=== PATIENT | male | born 1940 | race Two or more races ===

== ENCOUNTER 2019-10-08 17:07 | Inpatient (IN) | payer MEDICARE, MEDICAID ==
[~2019-10-08] VITALS: Ht 167.6 cm; Wt 75.3 kg
[2019-10-08] MEDS ORDERED: Omnipaque-300 100ml vial INJ PRN (17:15)
--- NOTE | 2019-10-08 17:25 | NUR ---
ED Nurse Note: pt brought in by ambulance from home due to ETOH. pt aao x0-1 and bedridden and alcohol smell noted. pt is confused but no combative behavior noted. drowsy and sleeping. no skin trauma noted. mild tremor and anxiety noted with mumbling but no SI or hallucination. pt is in gown and on [employer]. no acute distress noted at this time.
[2019-10-08 17:28] VITALS: BP 123/72
--- NOTE | 2019-10-08 17:36 | NUR ---
ED Nurse Note:blood sent to labs and IV meds and fluids given
[2019-10-08] MEDS ORDERED: Pantoprazole Inj IVP ONE (17:45)
[2019-10-08] MEDS ORDERED: DiphenhydrAMINE 50mg/ml Inj IVP ONE (17:45)
[2019-10-08 18:15] LABS: BASOPHILS % (AUTO) 1.6 % (0.0-2.0); EOSINOPHILS % (AUTO) 7.2 % (0.0-3.0); HEMATOCRIT 37.3 % (42.0-52.0); HEMOGLOBIN 12.3 G/DL (14.2-18.0); LYMPHOCYTES % (AUTO) 53.7 % (20.0-45.0); MEAN CORPUSCULAR VOLUME 93 FL (80-99); MONOCYTES % (AUTO) 6.3 % (1.0-10.0); NEUTROPHILS % (AUTO) 31.2 % (45.0-75.0); PLATELET COUNT 260 K/UL (150-450); RED CELL DISTRIBUTION WIDTH 14.7 % (11.6-14.8); WHITE BLOOD COUNT 7.1 K/UL (4.8-10.8)
--- NOTE | 2019-10-08 18:15 | Emergency Room Report ---
History of Present Illness General Chief Complaint: Alcohol Intoxication Source: Patient, EMS Present Illness HPI Patient presents from home There is minimal information the paramedics report that the family contacted the Paramedics as the patient appeared to be confused possible alcohol intoxication also had a vomiting episode with what they saw Having a red blood Here the patient is slurring his speech Not able to provide full history however he does repeat that he wants to go home and does not know why he is here He does admit to drinking alcohol earlier Denies any chest pain denies any diarrhea denies any abdominal pain Allergies: Coded Allergies: No Known Allergies (Unverified , 10/09/19) COVID-19 Screening Contact w/high risk pt: No Recent Travel to affected area: No Experienced COVID-19 symptoms?: No Patient History Limited by: medical condition Past Medical History: see triage record Reviewed Nursing Documentation: PMH: Agreed; PSxH: Agreed Nursing Documentation-PMH Past Medical History Deferred: Pt Cognitively Impaired Review of Systems All Other Systems: limited - Other than the ones mentioned in the history of present illness all others are reviewed however they do stay limited due to the patient's mental status Physical Exam Vital Signs Date Time Temp Pulse Resp B/P (MAP) Pulse Ox O2 Delivery O2 Flow Rate FiO2 10/08/19 17:03 98.4 55 18 123/72 (89) 98 Room Air Sp02 EP Interpretation: reviewed, normal General Appearance: other - Appears somewhat agitated Head: normocephalic, atraumatic Eyes: bilateral eye PERRL, bilateral eye EOMI ENT: hearing grossly normal, EOM grossly intact Neck: supple Respiratory: lungs clear, no respiratory distress, no retraction Cardiovascular #1: regular rate, rhythm Gastrointestinal: other - Patient is mildly distended however nontender on palpation Musculoskeletal: normal inspection Neurologic: alert - And responsive to verbal and physical stimuli but is agitated at times combative and then becomes more cooperative Skin: no rash Lymphatic: no adenopathy Procedures Critical Care Time Critical Care Time 50 minutes for multiple re-evaluations presentations with altered mental status concerning for acute decompensation and possible not including any procedural time Medical Decision Making Diagnostic Impression: Primary Impression: Encephalopathy Additional Impressions: GI bleed Acute alcoholic intoxication ER Course Multiple differentials including but not limited to neurological cardiac, cardiopulmonary gastrointestinal process entertained patient's hemoglobin count is normal Alcohol level was significantly elevated CT head does not show any acute process Patient requires further inpatient care and evaluation Labs Test 10/08/19 17:30 10/08/19 18:20 White Blood Count 7.1 K/UL (4.8-10.8) Red Blood Count 4.00 M/UL (4.70-6.10) Hemoglobin 12.3 G/DL (14.2-18.0) Hematocrit 37.3 % (42.0-52.0) Mean Corpuscular Volume 93 FL (80-99) Mean Corpuscular Hemoglobin 30.8 PG (27.0-31.0) Mean Corpuscular Hemoglobin Concent 33.0 G/DL (32.0-36.0) Red Cell Distribution Width 14.7 % (11.6-14.8) Platelet Count 260 K/UL (150-450) Mean Platelet Volume 7.0 FL (6.5-10.1) Neutrophils (%) (Auto) 31.2 % (45.0-75.0) Lymphocytes (%) (Auto) 53.7 % (20.0-45.0) Monocytes (%) (Auto) 6.3 % (1.0-10.0) Eosinophils (%) (Auto) 7.2 % (0.0-3.0) Basophils (%) (Auto) 1.6 % (0.0-2.0) Prothrombin Time 10.0 SEC (9.30-11.50) Prothromb Time International Ratio 0.9 (0.9-1.1) Activated Partial Thromboplast Time 26 SEC (23-33) Sodium Level 149 MMOL/L (136-145) Potassium Level 4.2 MMOL/L (3.5-5.1) Chloride Level 108 MMOL/L (98-107) Carbon Dioxide Level 24 MMOL/L (21-32) Anion Gap 19 mmol/L (5-15) Blood Urea Nitrogen 10 mg/dL (7-18) Creatinine 0.9 MG/DL (0.55-1.30) Estimat Glomerular Filtration Rate > 60 mL/min (>60) Glucose Level 143 MG/DL (74-106) Calcium Level 8.7 MG/DL (8.5-10.1) Total Bilirubin 0.2 MG/DL (0.2-1.0) Aspartate Amino Transf (AST/SGOT) 26 U/L (15-37) Alanine Aminotransferase (ALT/SGPT) 29 U/L (12-78) Alkaline Phosphatase 100 U/L (46-116) Troponin I 0.002 ng/mL (0.000-0.056) Total Protein 7.4 G/DL (6.4-8.2) Albumin 3.9 G/DL (3.4-5.0) Globulin 3.5 g/dL Albumin/Globulin Ratio 1.1 (1.0-2.7) Lipase 88 U/L (73-393) Serum Alcohol 356 mg/dL Urine Color Pale yellow Urine Appearance Clear Urine pH 7 (4.5-8.0) Urine Specific [place] 1.005 (1.005-1.035) Urine Protein Negative (NEGATIVE) Urine Glucose (UA) Negative (NEGATIVE) Urine Ketones Negative (NEGATIVE) Urine Blood Negative (NEGATIVE) Urine Nitrite Negative (NEGATIVE) Urine Bilirubin Negative (NEGATIVE) Urine Urobilinogen Normal MG/DL (0.0-1.0) Urine Leukocyte Esterase Negative (NEGATIVE) Urine Opiates Screen Negative (NEGATIVE) Urine Barbiturates Screen Negative (NEGATIVE) Phencyclidine (PCP) Screen Negative (NEGATIVE) Urine Amphetamines Screen Negative (NEGATIVE) Urine Benzodiazepines Screen Negative (NEGATIVE) Urine Cocaine Screen Negative (NEGATIVE) Urine Marijuana (THC) Screen Negative (NEGATIVE) Rhythm Strip Diag. Results EP Interpretation: yes Rate: 88 Rhythm: NSR, no PVC's, no ectopy CT/MRI/US Diagnostic Results CT/MRI/US Diagnostic Results : Impression CT headImpression: Age-related volume loss Negative for acute intracranial bleed or mass effect Evidence of prior right craniotomy CT abdomen pelvisImpression: Somewhat limited exam due to motion artifact Markedly distended urinary bladder Mild distal esophageal wall thickening, could indicate esophagitis No definite acute abnormality otherwise. Age-indeterminate L2 vertebral body compression fracture. 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
--- NOTE | 2019-10-08 18:17 | Diagnostic Imaging Report ---
Indications: Acute intoxication, history of head trauma, confused, slurred speech Technique: Spiral acquisitions obtained through the brain. Angled axial and coronal 5 x 5 mm slices were reconstructed. Total dose length product 1098 mGycm. CTDI vol(s) 50 mGy. Dose reduction achieved using automated exposure control Comparison: None. Findings: There is evidence of prior right temporal craniotomy. There is age-related enlargement of the ventricles and extra axial CSF spaces. No acute intracranial hemorrhage or edema. No mass effect nor midline shift. There is evidence of prior bilateral cataract surgery. The mastoids are clear. The sinuses are clear. Impression: Age-related volume loss Negative for acute intracranial bleed or mass effect Evidence of prior right craniotomy This agrees with the preliminary interpretation provided overnight by [facility] teleradiology service. The CT scanner at [facility] is accredited by the [employer] and the scans are performed using protocols designed to limit radiation exposure to as low as reasonably achievable to attain images of sufficient resolution adequate for diagnostic evaluation.
[2019-10-08 18:20] LABS: INR 0.9 (0.9-1.1)
--- NOTE | 2019-10-08 18:25 | NUR ---
ED Nurse Note:pt. had CT abdomen done
--- NOTE | 2019-10-08 18:33 | Diagnostic Imaging Report ---
Indication: Abdominal pain, vomiting blood Technique: Spiral acquisitions obtained through the abdomen and pelvis. No oral contrast utilized, per emergency room physician request No IV contrast utilized, per referring physician request.. Multiplanar reconstructions were generated. Total dose length product 416 mGycm. CTDIvol(s) 7.9 mGy. Dose reduction achieved using automated exposure control Comparison: None Findings: Motion artifact obscures the lower pelvis and there is some image degradation of the mid abdomen due to motion artifact. The appendix is normal. No evidence of colonic diverticulosis or diverticulitis. Proximal small bowel loops are gas-filled, slightly prominent, but not frankly distended and there is no transition point. No free or loculated intraperitoneal gas or fluid. There is mild wall thickening of the distal esophagus. The stomach is unremarkable. Lack of IV contrast limits assessment of the solid organs. The gallbladder has been removed. The liver demonstrate a small exophytic cyst coming off of segment 2 of the left hepatic lobe. The bile ducts, pancreas, spleen, adrenals are unremarkable. There is a 1 cm diameter eggshell calcification medial to the right kidney which probably represents a small calcified renal artery branch aneurysm. The kidneys are grossly unremarkable except for some perinephric fat stranding. No retroperitoneal or mesenteric mass or adenopathy. No pelvic mass or adenopathy. The bladder is markedly distended. There are mild posterior dependent pulmonary atelectatic changes. The bones demonstrate degenerative a compression fracture deformity of the L2 vertebral body. Also noted are degenerative spondylosis changes. Impression: Somewhat limited exam due to motion artifact Markedly distended urinary bladder Mild distal esophageal wall thickening, could indicate esophagitis No definite acute abnormality otherwise. Age-indeterminate L2 vertebral body compression fracture. 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 The CT scanner at [facility] is accredited by the [employer] and the scans are performed using protocols designed to limit radiation exposure to as low as reasonably achievable to attain images of sufficient resolution adequate for diagnostic evaluation.
[2019-10-08 18:44] LABS: ALANINE AMINOTRANSFERASE 29 U/L (12-78); ALBUMIN 3.9 G/DL (3.4-5.0); ALBUMIN/GLOBULIN RATIO 1.1 (1.0-2.7); ALKALINE PHOSPHATASE 100 U/L (46-116); ANION GAP 19 mmol/L (5-15); ASPARTATE AMINO TRANSFERASE 26 U/L (15-37); BILIRUBIN,TOTAL 0.2 MG/DL (0.2-1.0); BLOOD UREA NITROGEN 10 mg/dL (7-18); CALCIUM 8.7 MG/DL (8.5-10.1); CARBON DIOXIDE 24 MMOL/L (21-32); CHLORIDE 108 MMOL/L (98-107); CREATININE 0.9 MG/DL (0.55-1.30); POTASSIUM 4.2 MMOL/L (3.5-5.1); SODIUM 149 MMOL/L (136-145)
[2019-10-08 18:47] VITALS: BP 100/43
[2019-10-08 19:05] VITALS: BP 115/47
--- NOTE | 2019-10-08 19:05 | NUR ---
ED Nurse Note: Report received from KULWANT Navarro. Pt is sleeping at this time, no acute distress noted. IV is patent and intact, IV fluids infusing. Pt vital signs are stable. Will continue to monitor.
[2019-10-08 19:15] LABS: APPEARANCE,URINE CLEAR; BILIRUBIN, URINE NEGATIVE (NEGATIVE); COLOR,URINE PALE YELLOW; GLUCOSE, URINE (UA) NEGATIVE (NEGATIVE); KETONES,URINE NEGATIVE (NEGATIVE); LEUKOCYTE ESTERASE ,URINE NEGATIVE (NEGATIVE); NITRITE,URINE NEGATIVE (NEGATIVE); PH,URINE 7 (4.5-8.0); PROTEIN,URINE NEGATIVE (NEGATIVE); UROBILINOGEN,URINE NORMAL MG/DL (0.0-1.0)
--- NOTE | 2019-10-08 20:00 | NUR ---
ED Nurse Note: Report given to KULWANT Quintanilla.
--- NOTE | 2019-10-08 20:15 | NUR ---
ED Nurse Note: Pt stable for transfer to [facility] unit at this time per ERMD. Pt is in no acute distress, vital signs are stable. Pt is sleeping at this time, but is arousable to light touch. Pt IV patent and intact. Pt taken to unit via gurney by RN. Pt belongings sent with pt.
[2019-10-08 20:20] VITALS: BP 127/58
--- NOTE | 2019-10-08 20:20 | NUR ---
NURSE NOTES: Arrived patient the unit. Received report from ER nurse Verna RN. Patient open his eyes, non-verbal response, but patient has body response when stimulated. Belonging checked and patient is unable to sign. IV site is intact and patient. Bed is on alam, locked, lowest position. Call light within reach. Will continue to monitor.
--- NOTE | 2019-10-08 20:46 | NUR ---
NURSE NOTES: Called to Dr. Davidson regarding admission order and left message.
--- NOTE | 2019-10-08 21:57 | NUR ---
NURSE NOTES: Called 2nd to Dr. Davidson regarding admission order and left message.
--- NOTE | 2019-10-08 22:52 | NUR ---
NURSE NOTES: patient is awake now, and only Guinean specking. Dr. Davidson want family's number and got family's number from patient; son, Puneet Gordillo [phone]. Patient ambulate with assist to go bathroom. Called to Dr. Davidson regarding family number and left message. Addendum: 10/08/19 at 0958 by Dwight Cohen RN add: patient a/ox3
[2019-10-08] MEDS ORDERED: Thiamine HCl 100 MG in NS 55 ML IM SCH (23:00)
[2019-10-08] MEDS: Thiamine HCl 100 MG in NS 55 ML IVPB SCH (23:28)
[2019-10-09] VITALS: BP 125/70
[2019-10-09] MEDS ORDERED: Folic Acid 1 MG, Magnesium Sulfate 2,000 MG, Multivitamin - 12 Injection 10 ML in Sodiu... IV SCH ×4
[2019-10-09 04:00] VITALS: BP 130/62
--- NOTE | 2019-10-09 07:30 | NUR ---
HAND-OFF: Report given to Cornel BLUM. Patient in stable condition.
--- NOTE | 2019-10-09 07:45 | NUR ---
NURSE NOTES: Received report from Dwight BLUM, pt a/a/o with no signs of distress or other issues at this time. pt is able to ambulate around the room with unsteady gait, pt needs medical operations supervisor assistance. pt's IV left CHEN gauge #22 running D5 1/2 NS@125ml/hr. call light within reach. bed in lowest position. side rales up x2. I will f/u as needed.
[2019-10-09 08:00] VITALS: BP 124/70
[2019-10-09] MEDS ORDERED: Thiamine 100mg tab ORAL SCH (09:00)
[2019-10-09] MEDS: Pantoprazole Inj IVP SCH (09:12)
[2019-10-09] MEDS: Folic Acid 1 MG, Magnesium Sulfate 2,000 MG, Multivitamin - 12 Injection 10 ML in Sodiu... IV SCH (09:12)
[2019-10-09] MEDS ORDERED: Potassium Chloride 10 MEQ in D5 1/2NS 1,000 ML IV SCH (10:00)
[2019-10-09] MEDS ORDERED: D5 1/2NS w/KCL 10meq 1,000 ML IV SCH (10:44)
[2019-10-09] MEDS: NovoLOG Insulin Flexpen SUBQ SCH ×3 (11:30→20:17)
--- NOTE | 2019-10-09 11:30 | NUR ---
CASE MANAGEMENT: INITIAL REVIEW 79YR OLD MALE BIBJed FROM HOME CC: ETOH INTOXICATION; COMBATIVE; BEDRIDDEN; VOMIT BLOOD X1 EPISODE SI:ACTE ALCOHOLIC INTOXICATION . ENCEPHALOPATHY 98.4 55 18 123/72 98% ON RA NA+ 149 CL- 108 BGLU 143 H/H 12.3/37.3 S. 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
[2019-10-09] MEDS ORDERED: NovoLOG Insulin Flexpen SUBQ SCH (11:50)
[2019-10-09 12:00] VITALS: BP 103/87
--- NOTE | 2019-10-09 15:48 | NUR ---
SUPERVISOR CUSTOMER COMPLAINT SERVICE NOTE SW received a consult for home safety evaluation. Pt is monolingual Welsh.SW met w/ pt and completed the home safety evaluation and address his substance abuse through customer service advisor Francisco #[phone]. Pt presents as A&O3x. Pt denies using DME for ambulation. Pt has 3 adult children, one residing in [facility], one living in [place], [place] and one living w/ him. Pt resides w/ his brother and son at [address] [address], [place] [id number]. PT reports he walks to grocery store, cooks and take bath w/o any assistance/supervision. Grab bars are available in his bathroom. Pt reports he is independent w/ ADLs. He also reports he does not have any problem w/ going up and down stairs. Pt denies fall within past 6 months. Pt states he has good relationship w/ his brother and son and will return home upon DC. Pt admits he drank hard liquor prior to admission. He reports he occasionally drinks a small amount of hard liquor, thus he does not consider as a problem. Pt declined to receive resource on substance abuse rehab programs. Pt provided verbal consent to contact his son, Puneet Lucero [phone]. SW spoke w/ Puneet Rollins through customer service advisor Greta #[phone]. Puneet confirmed the address is [address] [address], [place] [address]. However, Puneet was unable to participate/verify pt's home safety. Puneet sounded intoxicated and screamed several times "He is a citizen. He needs everything that he needs Bring him by [employer]." SW attempted to get pt's granddaughter, Rhiannon Styles's phone number but Puneet declined to provide the number. PT consult to determine the recommendation of DME use.
[2019-10-09 16:00] VITALS: BP 160/77
[2019-10-09] MEDS: D5 1/2NS w/KCL 10meq 1,000 ML IV SCH (17:30)
--- NOTE | 2019-10-09 19:19 | NUR ---
NURSE NOTES: Addendum: 10/09/19 at 1920 by Cornel Salguero RN HAND-OFF: Report given to Codey BLUM pt in stable condition, laying in bed with no signs of distress or other issues at this time.
--- NOTE | 2019-10-09 19:30 | NUR ---
NURSE NOTES: Pt. received from KULWANT Unger. Pt. AAOx4, on room air, no complaints of pain, no indications of shortness of breath at this time. IV access L hand 22g intact, running D5 1/2NS 20meq at 100cc/hr. Bed is low and locked, side rails x2 up, bed alarm active, and call light is in reach. Will continue plan of care.
[2019-10-09 20:00] VITALS: BP 148/73
--- NOTE | 2019-10-09 21:45 | NUR ---
NURSE NOTES: Pt. able to tolerate sandwich and 240 cc water, alternated sips between bites; with 1:1 feed. Addendum: 10/10/19 at 0348 by Codey Decker RN Wrong pt., entered in error.
[2019-10-09] MEDS: Thiamine HCl 100 MG in NS 55 ML IVPB SCH (22:37)
[2019-10-10] VITALS: BP 125/83
--- NOTE | 2019-10-10 01:00 | History and Physical Report ---
DATE OF ADMISSION: 10/08/2019 REASON FOR ADMISSION: Encephalopathy. HISTORY OF PRESENT ILLNESS: This is a male, age 79, who lives with family members. He was brought into the emergency room by paramedics because the patient was noted to be confused and slurring his speech. There was a question about whether he had been drinking alcohol and vomiting. The patient himself has no knowledge as to why he is in the hospital although does admit to drinking alcohol earlier. He denies having a problem with alcohol abuse and states that he drank a lot because he was feeling somewhat sad earlier, but has no further description. There is no reported witnessed seizure activity although son is not present to give any details at this time. The patient was seen in the emergency room, a diagnostic workup undertaken, and elevated alcohol level obtained. The patient possibly vomited some bloody emesis earlier, but that cannot be confirmed. PAST MEDICAL HISTORY: Hypertension, hyperlipidemia, type 2 diabetes mellitus, and history of craniotomy due to "head bleed" following fall in bathtub. ALLERGIES: None known. MEDICATIONS: Prior to admission, names not available, but the patient states he takes 3 pills, 1 for each of the diagnoses noted above. FAMILY HISTORY: Not known. SOCIAL HISTORY: Denies smoking. He denies alcohol abuse although came in intoxicated and there is no history of substance abuse. He lives with family members. REVIEW OF SYSTEMS: Limited due to the patient's poor historical data. All systems negative other than noted above. PHYSICAL EXAMINATION: VITAL SIGNS: Blood pressure 123/72, pulse 55, respirations 18, afebrile. GENERAL: Slightly disheveled, cooperative overall. HEENT: Conjunctivae pink. Oropharynx clear. Mucous membranes dry. NECK: Supple. Jugular venous pressure normal. LUNGS: Clear. CARDIAC: Regular rhythm and rate. Normal S1, S2 with no murmur, rub, or gallop. ABDOMEN: Soft, nontender. No ascites or hepatomegaly. EXTREMITIES: Good pulses. No clubbing or cyanosis. No edema. NEUROLOGIC: Cooperative to my exam. Alert and oriented x2. No motor deficits. IMAGING: EKG with sinus tachycardia and nonspecific ST change. Sodium 149, potassium 4.2, chloride 108, bicarb 24, BUN 10, creatinine 0.9. Glucose 143. Troponin negative. Lipase 88. Albumin 3.9. White count 7.1. Hemoglobin 12.3. Urinalysis, no active sediment. Drug tox screen positive only for alcohol. CT scan of the brain reveals prior right craniotomy. No acute process. LABORATORY DATA: CT scan of the abdomen reveals esophageal wall thickening distally, L2 compression fracture, prior cholecystectomy, right renal artery aneurysm, and atelectasis. IMPRESSION: 1. Toxic encephalopathy. 2. Alcohol intoxication. 3. History of craniotomy, rule out seizures. 4. Dehydration. 5. Hypernatremia. 6. Hyperchloremia. 7. Type 2 diabetes mellitus with hyperglycemia. 8. Age indeterminate compression fracture of L2. 9. Prior cholecystectomy. 10. History of renal artery aneurysm. PLAN: 1. Withdrawal precautions. 2. Hydration by IV route. 3. Vitamin supplementation. 4. Metabolic profile. 5. EEG to be considered. 6. Empiric proton pump inhibitor. Doc Davidson M.D. DR: VINCE JOB#: [id number] CC:
--- NOTE | 2019-10-10 01:15 | Progress Note ---
DATE: 10/09/2019 CARDIOLOGY AND INTERNAL MEDICINE PROGRESS NOTE SUBJECTIVE: No seizures. Alert and cooperative. Continues on IV fluids. PHYSICAL EXAMINATION: VITAL SIGNS: Blood pressure is labile ranging from 106/87 to 160/77, heart rate 77 to 90, respiratory rate 19, and afebrile. HEENT: Oropharynx clear. Mucous membranes dry. NECK: Supple. Jugular venous pressure normal. LUNGS: Diminished breath sounds. CARDIAC: Regular rhythm and rate. Normal S1, S2 with a fourth heart sound. ABDOMEN: Soft, nontender. No ascites. EXTREMITIES: Good pulses. No edema. NEUROLOGIC: No asterixis. Slight resting tremor. IMPRESSION: 1. Alcohol intoxication. 2. Toxic encephalopathy. 3. Hypovolemia, dehydration, and hypernatremia. 4. Hyperchloremia. 5. History of craniotomy, rule out seizures. 6. History of diabetes, type 2. 7. History of hypertension, now with labile blood pressure. 8. History of hyperlipidemia, usually on statin drug. PLAN: 1. Continue IV fluids. 2. Hold statin therapy. 3. Titrate antihypertensive. 4. Insulin coverage by sliding scale. 5. EEG. 6. Metabolic profile. 7. Vitamin supplementation. 8. Withdrawal precautions. Funmi Osuna JOB#: [id number] CC:
[2019-10-10] MEDS: D5 1/2NS w/KCL 10meq 1,000 ML IV SCH ×3 (03:15→22:23)
[2019-10-10 04:00] VITALS: BP 149/74
[2019-10-10] MEDS: NovoLOG Insulin Flexpen SUBQ SCH ×4 (06:08→21:05)
[2019-10-10 06:46] LABS: BASOPHILS % (AUTO) 0.6 % (0.0-2.0); EOSINOPHILS % (AUTO) 3.7 % (0.0-3.0); HEMATOCRIT 32.5 % (42.0-52.0); HEMOGLOBIN 11.3 G/DL (14.2-18.0); LYMPHOCYTES % (AUTO) 12.7 % (20.0-45.0); MEAN CORPUSCULAR VOLUME 89 FL (80-99); MONOCYTES % (AUTO) 7.6 % (1.0-10.0); NEUTROPHILS % (AUTO) 75.4 % (45.0-75.0); PLATELET COUNT 186 K/UL (150-450); RED BLOOD COUNT 3.63 M/UL (4.70-6.10); RED CELL DISTRIBUTION WIDTH 13.5 % (11.6-14.8); WHITE BLOOD COUNT 8.7 K/UL (4.8-10.8)
--- NOTE | 2019-10-10 07:10 | NUR ---
HAND-OFF: Report given to KULWANT Ortiz. Pt. endorsed as fall risk, fall prevention measures in place, bed alarm active, and call light in reach.
[2019-10-10 07:11] LABS: ANION GAP 10 mmol/L (5-15); BLOOD UREA NITROGEN 11 mg/dL (7-18); CALCIUM 8.4 MG/DL (8.5-10.1); CARBON DIOXIDE 24 MMOL/L (21-32); CHLORIDE 103 MMOL/L (98-107); CREATININE 0.8 MG/DL (0.55-1.30); POTASSIUM 4.4 MMOL/L (3.5-5.1); SODIUM 137 MMOL/L (136-145)
--- NOTE | 2019-10-10 07:13 | NUR ---
NURSE NOTES: Patient awake and alert ,sitting up in bed and eating breakfast.IV fluids infusing as ordered.Bed alarm is on,call light within reach.
[2019-10-10 07:54] LABS: CREATINE KINASE 87 U/L (26-308)
[2019-10-10 08:02] VITALS: BP 145/71
[2019-10-10] MEDS: Pantoprazole Inj IVP SCH (08:34)
[2019-10-10] MEDS: Folic Acid 1 MG, Magnesium Sulfate 2,000 MG, Multivitamin - 12 Injection 10 ML in Sodiu... IV SCH (09:49)
--- NOTE | 2019-10-10 11:17 | Diagnostic Imaging Report ---
Indication: Cough Technique: 2 views of the chest Comparison: None Findings: Lungs and pleural spaces are clear. The heart size is normal. The bones demonstrate degenerative spondylosis changes. No significant interim change. Impression: No acute process
[2019-10-10 12:00] VITALS: BP 134/65
--- NOTE | 2019-10-10 12:50 | NUR ---
P.T Note: P.T evaluation completed. Pt is baseline independent in basic ADL/functional mobilities. Current functional status does not warrant skilled P.T service. DC P.T services. Recommend DC to prior living arrangement.
--- NOTE | 2019-10-10 15:00 | NUR ---
NURSE NOTES: Patient awake ,resting,bed alarm on,call light within reach.
--- NOTE | 2019-10-10 15:28 | NUR ---
HAND-OFF: Report given to Mary RN aware of fall risk .
--- NOTE | 2019-10-10 15:41 | NUR ---
NURSE NOTES: AWAKEALERT. NO CO PAIN. IN NO APPARENT DISTRESS. IV INFUSING.
[2019-10-10 15:59] VITALS: BP 131/71
[2019-10-10] MEDS: Vitamin B12 1000mcg/ml Inj IM SCH (18:28)
--- NOTE | 2019-10-10 18:58 | NUR ---
NURSE NOTES: QUIET IN BED. IN NO ACUTE DISTRESS.
--- NOTE | 2019-10-10 19:11 | NUR ---
HAND-OFF: Report given to Marissa ZABALA RN.
--- NOTE | 2019-10-10 19:29 | NUR ---
NURSE NOTES: Report received from KULWANT Hernandez. Patient is at bed, in stable condition. Side rails upx2. Bed is low and locked. Will continue to monitor.
[2019-10-10 20:00] VITALS: BP 152/69
--- NOTE | 2019-10-10 20:40 | NUR ---
NURSE NOTES: central sterile supply technician here to see pt.
--- NOTE | 2019-10-10 21:42 | NUR ---
NURSE NOTES: Informed Dr. Davidson regarding EEG findings.
[2019-10-10] MEDS: Thiamine HCl 100 MG in NS 55 ML IVPB SCH (22:22)
--- NOTE | 2019-10-10 22:45 | Progress Note ---
DATE: 10/10/2019 CARDIOLOGY AND INTERNAL MEDICINE PROGRESS NOTE SUBJECTIVE: The patient is feeling better. Tolerating diet. An EEG results pending. OBJECTIVE: VITAL SIGNS: Blood pressure 131/71, , respiratory rate 20, afebrile. LUNGS: Clear. CARDIAC: Regular. ABDOMEN: Soft. EXTREMITIES: No edema. LABORATORY DATA: Notable white count 8.7, hemoglobin 11.3. Potassium 4.4, sodium 137, bicarb 24, BUN 11, creatinine 0.8. Magnesium 1.7. B12 168. Folate 13.6. TSH 2.1. IMPRESSION: 1. Alcohol intoxication resolved. 2. 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 3. B12 deficiency likely due to pernicious anemia. 4. Hypomagnesemia. 5. Dehydration. 6. Hyponatremia, corrected. 7. Hypertension with hypertensive heart disease. 8. Type 2 diabetes mellitus. PLAN: 1. Intravenous magnesium. 2. B12 supplement. 3. Adjust IV fluids. 4. Add GUNNAR inhibitor. 5. Mobilize. Doc Davidson M.D. DR: Colin JOB#: [id number] CC:
[2019-10-11] VITALS: BP 137/75
[2019-10-11 04:00] VITALS: BP 155/79
[2019-10-11] MEDS: NovoLOG Insulin Flexpen SUBQ SCH ×3 (05:40→16:30)
--- NOTE | 2019-10-11 07:27 | NUR ---
HAND-OFF: Report given to KULWANT Fullre. Patient is at bed, eating breakfast. In stable condition.
--- NOTE | 2019-10-11 07:29 | NUR ---
NURSE NOTES: Patient is in bed awake and able to verbalize needs. Stable. Patient offered breakfast. Patient instructed to use call light for assistance, verbalized understanding. Patient is in bed in locked and lowest position with call light within reach. All needs met at this time. Will continue to monitor.
[2019-10-11 08:00] VITALS: BP 133/66
[2019-10-11] MEDS: Vitamin B12 1000mcg/ml Inj IM SCH (08:49)
[2019-10-11] MEDS: Folic Acid 1 MG, Magnesium Sulfate 2,000 MG, Multivitamin - 12 Injection 10 ML in Sodiu... IV SCH (08:49)
[2019-10-11] MEDS: Pantoprazole Inj IVP SCH (08:49)
[2019-10-11] MEDS ORDERED: Lisinopril 20mg tab ORAL SCH (09:00)
--- NOTE | 2019-10-11 10:07 | NUR ---
CASE MANAGEMENT: REVIEW 10/11/19 SI:ACTE ALCOHOLIC INTOXICATION . ENCEPHALOPATHY 99.3 77 20 133/66 97% ON RA IS:IV D5@60ML/HR IV BANANA BAG@125ML/HR LISINOPRIL PO QD IV PROTONIX QD VIT B12 IM QD MG SULFATE X2 BAGS-STILL RUNNING 10/10/19 CHEST X-RAY- NO ACUTE PROCESS \: HOME WHEN STABLE PLAN: MONITOR BEHAVIORS SW CONSULT- LIVES WITH SON PT EVAL AND TREAT -SAFETY EVAL CORRECT B12 LEVEL
[2019-10-11 12:00] VITALS: BP 144/79
--- NOTE | 2019-10-11 15:00 | NUR ---
NURSE NOTES: Spoke to Dr. mcqueen regarding patient's status. RN updated Dr. mcqueen on patient's ambulation status. No new orders at this time. Will continue to plan of care.
--- NOTE | 2019-10-11 15:12 | NUR ---
CASE MANAGEMENT: NOTE PAGED DR. MOCTEZUMA REGARDING DISCHARGE PATIENT Addendum: 10/11/19 at 1527 by BHAVANA MARIA LVN NO DISCHARGE NEEDS PATIENT IS CLEAR FOR DC
--- NOTE | 2019-10-11 15:15 | Electroencephalogram ---
DATE OF PROCEDURE: 10/10/2019 REQUESTING PHYSICIAN: Doc aDvidson M.D. EEG REPORT HISTORY: This EEG was performed on a 79-year-old gentleman, who was brought into the hospital for an altered mental state. The purpose of this EEG was to evaluate the patient for the degree and type of cerebral dysfunction. TECHNICAL NOTE: This EEG was performed on a [employer] with electrodes placed on the scalp according to the [employer] 10-20 system. Tpepj-cs-epyrs and pqvmq-hj-lab montages were used. A large array of montages were available for review of the EEG with digital reformatting. The EEG was technically satisfactory and was performed in the awake and drowsy states. OBSERVATIONS: In the best awake state, the background activity consisted of low amplitude, 8-9 Hz alpha activity with a moderate amount of intermixed 5-6 Hz theta activity and in addition, superimposed fast beta activity. Drowsiness was characterized by slowing of the background in the 4-5 Hz theta range. No focal abnormalities or epileptiform discharges were seen. IMPRESSION: This is an abnormal EEG characterized by an unusually large amount of 5-6 Hz theta activity seen in the reportedly awake state. COMMENT: This study is consistent with an encephalopathy of a [id number]-[id number] degree. Clinical correlation is recommended. Tyrese Coulter M.D., M.S.P.H. Clinical Neurophysiologist DR: YARITZA JOB#: [id number] MANNIE
[2019-10-11] MEDS: D5 1/2NS w/KCL 10meq 1,000 ML IV SCH (15:40)
[2019-10-11 16:00] VITALS: BP 134/61
[2019-10-11] MEDS ORDERED: Tubing IV Secondary IV ONE (18:09)
--- NOTE | 2019-10-11 18:27 | NUR ---
NURSE NOTES: Patient discharged home as ordered. Stable. Denies pain or SOB. Patient was given thorough discharge instructions by RN, verbalized understanding. Patient has written instructions in turkmen. No IV access. Skin is c/d/i. Clothes offered to patient. Taxi called for patient. Patient has all belongings. Wristband removed. Patient's son called RN who transferred call to patient. Patient assisted downstairs by staff via wheelchair without incident.
--- NOTE | 2019-10-11 19:15 | Progress Note ---
DATE: 10/11/2019 INTERNAL MEDICINE PROGRESS NOTE SUBJECTIVE: The patient was seen by physical therapist, doing well, and advised for independent function. Vitals are stable, nonorthostatic. Tolerating diet. No nausea or vomiting. No sign of bleeding. OBJECTIVE: LUNGS: Clear. CARDIAC: Regular. ABDOMEN: Soft. EXTREMITIES: No edema. NEUROLOGIC: No tremor. DIAGNOSTIC DATA: EEG suggestive of metabolic encephalopathy. No seizure focus. IMPRESSION: 1. Acute alcohol intoxication. 2. Cyclic alcoholism. 3. B12 deficiency due to pernicious anemia. 4. Hypertension with hypertensive heart disease. 5. Type 2 diabetes mellitus. 6. History of hyperlipidemia. 7. Hypovolemia and dehydration, corrected. 8. Hypomagnesemia, status post replacement. PLAN: Discharge planning. Continue baseline medication regimen. Outpatient B12 injections will be arranged. The patient will be referred back to Dr. Young Gaviria for long-term medical care. Funmi Osuna JOB#: [id number] CC:
--- NOTE | 2019-10-13 15:55 | Discharge Summary ---
Discharge Summary Discharge Summary _ DATE OF ADMISSION: 10/08/2019 DATE OF DISCHARGE: 10/11/2019 DISCHARGED BY: REASON FOR ADMISSION: 79 years old male, with past medical history of hypertension, hyperlipidemia, diabetes mellitus type 2, history of craniotomy due to intracranial bleeding , status post fall in the bathtub, presented to emergency room by paramedics. Patient was noted by family to be confused and had slurred speech. Patient was drinking alcohol and apparently had episode of emesis. Patient by himself initially was unable to provide much of the history. CT of the head revealed evidence of prior right craniotomy , but was negative for acute intracranial bleeding or mass-effect. CT of the abdomen and pelvis revealed mild distal esophageal wall thickening, possibly indicative of esophagitis. No definite acute abnormality otherwise. Age-indeterminate L2 vertebral body compression fracture. Prior cholecystectomy. 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 Laboratory work-up revealed serum alcohol 356. Urine toxicology screen was negative. No leukocytosis, hemoglobin 12.3 hematocrit 37.3. Sodium 149, chloride 108. Stable renal parameters. Glucose 143. Troponin negative. LFT and lipase within normal limits. HOSPITAL COURSE: Patient admitted to medical surgical floor Patient started on IV hydration with vitamins minerals/banana bag and Withdrawal precautions instituted. GI prophylaxis provided. EEG revealed abnormal findings, characterized by unusually large amount of 5- 6 Hz theta activity , seen in the reportedly awake state. These results were consistent with encephalopathy of mild to moderate degree. Renal parameters and electrolytes were closely monitored. Sodium and chloride corrected with IV hydration and stable prior to discharge. Magnesium was replaced. Noted low B12 level. Patient received B12 injection. Patient will have outpatient B12 injections. Blood pressure was managed with GUNNAR inhibitor. Blood sugar was managed with sliding scale of insulin. Supportive care provided. Mental status improved . Patient was counseled on abstinence from ETOH. Patient clinically stabilized and was ready for discharge home. Follow-up with Dr. Gaviria for long-term medical care. FINAL DIAGNOSES: Toxic encephalopathy Alcohol intoxication Cyclic alcoholism History of craniotomy, rule out seizure Dehydration Electrolyte abnormalities: hypernatremia, hyperchloremia, hypomagnesemia Diabetes mellitus type 2 with hyperglycemia Age undetermined compression fracture of L2 B12 deficiency , likely due to pernicious anemia Hypertensive heart disease History of cholecystectomy History of renal artery aneurysm DISCHARGE MEDICATIONS: See Medication Reconciliation list. DISCHARGE INSTRUCTIONS: Patient was discharged home. Follow-up with the Dr. Gaviria in 1 week. I have been assigned to dictate discharge summary for this account. I was not involved in the patient's management. Giuliana Ribeiro NP Oct 13, 2019 15:55
== END 2019-10-11 18:10 | disposition home or self-care (01) | DRG 896 ==
LOC: EDBD 17:07 → EMR 17:48 → 3E 18:40 → EDBEDREQ 20:01
DX: F10.229 Alcohol dependence with intoxication, unspecified (principal); G92 Toxic encephalopathy; E87.0 Hyperosmolality and hypernatremia; I10 Essential (primary) hypertension; E78.5 Hyperlipidemia, unspecified; E11.65 Type 2 diabetes mellitus with hyperglycemia; E86.0 Dehydration; E87.8 Other disorders of electrolyte and fluid balance, not elsewhere classified; E86.1 Hypovolemia; E53.8 Deficiency of other specified B group vitamins; E83.42 Hypomagnesemia
CPT/HCPCS: 36415; 70450; 71046; 74176; 80048; 80053; 80307; 81003; 82550; 82607; 82746; 82962; 83690; 83735; 84443; 84484; 85025; 85610; 85730; 86850; 86900; 86901; 93005; 95819; 96361; 96374; 96375; 99285; G0480; J1815; J2405; J7030